=== PATIENT | male | born 1960 | race Caucasian/White ===

== ENCOUNTER 2023-11-06 19:21 | Inpatient (IN) | payer OTHER, SELFPAY ==
--- NOTE | 2023-11-06 20:40 | PCM.HP.STD ---
HPI - General General Date of Admission: 11/06/23 Date of Service: 11/06/23 Chief Complaint: Fatigue, weakness, dyspnea, black stools, body aches. HPI Narrative The patient is a 62 y/o M w/ PMHx: HLD hesitant to initiate statin therapy per outside records, Hx Hodgkin's lymphoma of lymph nodes of the neck treated with cobalt radiation in 1975 considered in remission currently, chart reported prior elevated BP without HTN history, Obesity, Hx Thyroid CA s/p surgical resection now resulting Hypothyroidism, Diabetes mellitus type II who presents to the [facility] on 11/06/23 as a direct admission from [facility] following evaluation at their facility secondary to significant general body aches and fatigue with any activity with recent aggressive full dose aspirin self administration because of this with dark black appearing melanotic stools prompting ED evaluation. Patient notes that he often is active and hikes as well as mows lawns for enjoyment but recently has felt exhausted during attempts. Primarily notes it started over the weekend. He was taking ASA for BL knee joint pain but last intake was the prior. He notes his stools last week were normal appearance. In the outside facility workup included vital signs BP 137/73 heart rate 110, respiratory rate 16, temperature 36 ?C, 100% oxygenation on room air, CBC with WBC 16.2, hemoglobin 8.9, platelet 271 without marked shift reported, coags not marked appearing, no previous CBC for comparison, BMP unremarkable aside mildly elevated BUN 20, creatinine 1.0. Patient with no previous labs for comparison. In the ED at outside facility stool was noted to be grossly melanotic and tested positive with occult positive stool. Patient was administered 1 L normal saline and administered IV Protonix. Case was discussed with gastroenterology Dr. Puga who recommended admission to [facility], CT scan abdomen and pelvis which was obtained and noted multiple well-circumscribed hepatic lesions likely cysts which patients notes are chronic and stable otherwise no acute findings. Per Dr. Puga patient was recommended upon arrival at [facility] to be administered 1 unit PRBC and placed on a Protonix drip with planned endoscopy. [facility] Medical History (Updated 11/06/23 @ 21:[address] Miriam Mayberry MD) Obesity HLD (hyperlipidemia) History of Hodgkin's lymphoma History of thyroid cancer Diabetes mellitus, type 2 Hypothyroidism Home Medications ?Medication ?Instructions ?Recorded ?Last Taken ?Type metformin 500 mg tablet 500 mg PO DAILY diabetic 05/25/21 Unknown History insulin degludec 100 unit/mL (3 12 unit subcut QHS Blood sugar 11/06/23 Unknown History mL) subcutaneous pen (Tresiba FlexTouch U-100 insulin) levothyroxine 150 mcg tablet 150 mcg PO DAILY Thyroid 11/06/23 Unknown History (Synthroid) sitagliptin phosphate 100 mg 100 mg PO DAILY Diabetic 11/06/23 Unknown History tablet (Januvia) Allergy/AdvReac Type Severity Reaction Status Date / Time No Known Allergies Allergy Unverified 05/25/21 15:47 Family History Father Diabetes Hypertension Grandmother Diabetes Maternal and paternal grandmothers. Uncle Diabetes Paternal uncle x 2. CAD (coronary artery disease) Maternal uncle. Brother Anxiety and depression Mother Alzheimer disease Surgical History (Updated 11/06/23 @ 21:[address] Miriam Mayberry MD) History of arthroscopy of both knees S/P cholecystectomy S/P total thyroidectomy S/P appendectomy S/P laparoscopic splenectomy Social History household members: spouse Smoking Status: Never smoker alcohol intake: current alcohol intake frequency: a few times a week substance use type: does not use ROS ROS Narrative Admission Review of Systems: CONSTITUTIONAL: No weight loss, fever, chills, + weakness or fatigue. HEENT: Eyes: No visual loss, blurred vision, double vision or yellow sclerae. Ears, Nose, Throat: No hearing loss, sneezing, congestion, runny nose or sore throat. SKIN: No rash or itching, lesions, wounds. CARDIOVASCULAR: No chest pain, chest pressure or chest discomfort, palpitations, edema, orthopnea, syncopal events. RESPIRATORY: + Dyspnea, primarily with exertion. No cough or sputum, wheezing, hemoptysis. GASTROINTESTINAL: + Increased flatus, belching, black melanotic stools. No anorexia, nausea, vomiting, diarrhea, abdominal pain, BRBPR. GENITOURINARY: No dysuria, frequency, urgency or retention. NEUROLOGICAL: No headache, dizziness, syncope, paralysis, ataxia, numbness or tingling in the extremities, focal weakness, change in bowel or bladder control, seizure. MUSCULOSKELETAL: + muscle, back pain, joint pain or stiffness. HEMATOLOGIC: + Anemia, melanotic stools as noted with active GI bleed. LYMPHATICS: No enlarged nodes. No history of splenectomy. PSYCHIATRIC: No history of depression or anxiety. ENDOCRINOLOGIC: No reports of sweating, cold or heat intolerance. No polyuria or polydipsia. ALLERGIES: No history of asthma, hives, eczema or rhinitis. Physical Exam Narrative Physical Examination: General: Awake, alert, oriented x 3 and cooperative, seated upright in MS bed in no apparent distress. Skin: Mildly pale color, normal turgor, no icterus, no cyanosis. HEENT: AT/NC, EOMI, PERRLA, MMM, no carotid bruits or JVD noted; however thickened neck makes evaluation difficult. Lungs: CTA bilaterally, moderate effort, mild decrease BL bases, no rales, ronchi or wheezing. Heart: Regular rate and rhythm; no gallop, rub audible. Abdomen: Soft, obese, NTTP, midline old abdominal incision, ND, hyperactive BS, no appreciated HSM. Extremities: No cyanosis, clubbing, or edema. Neurological: Patient awake, alert, oriented as noted, cognitive function intact; pupils equally reactive to light and accommodation, cranial nerves II-XII grossly normal, moving all 4 extremities, no focal deficits, strength moderately globally decreased secondary to acute presentation. Psychiatric: Affect appears fatigued otherwise normal, no acute evidence of depressive or anxiety feelings. Results Lab / Micro Data 11/06/23 20:45 Assessment & Plan Assessment/Plan (1) GI bleed: PLAN: Plan The patient is a 62 y/o M w/ PMHx: HLD hesitant to initiate statin therapy per outside records, Hx Hodgkin's lymphoma of lymph nodes of the neck treated with cobalt radiation in 1975 considered in remission currently, chart reported prior elevated BP without HTN history, Obesity, Hx Thyroid CA s/p surgical resection now resulting Hypothyroidism, Diabetes mellitus type II who presents to the [facility] on 11/06/23 as a direct admission from [facility] following evaluation at their facility secondary to significant general body aches and fatigue with any activity with recent aggressive full dose aspirin self administration because of this with dark black appearing melanotic stools prompting ED evaluation. #1. Acute GI Bleed w/ resultant Acute Blood Loss Anemia potentially on chronic anemia but unclear as no comparison previously: Patient with grossly melanotic stool, positive stool guaiac, outside facility hemoglobin 8.9 without comparison. Will admit to [facility] given stable vital signs, maintain on IVFs, continue with plan 1 unit PRBC administration per GI request, continue serial H&H assessments, will initiate and maintain on IV Protonix drip, gastroenterology consulted and will plan n.p.o. status after midnight with clears liquids prior to this for planned endoscopy. #2. Diabetes mellitus type II: Hold oral home regimen, will continue long-acting insulin but hold short acting insulin, given presentation as noted #1 will maintain on clear liquids until midnight then n.p.o. status following, maintain on every 6 hours accu checks w/ ISS given clears then n.p.o. status with transition once diet progressed. From [facility] records reviewed patient's most recent hemoglobin A1c 7.2% following with endocrinology started on Mounjaro 2.5 mg weekly with plan follow-up again in [address] Tito Bowman. #3. History of thyroid cancer status post total thyroidectomy now with resulting hypothyroidism: We will continue patient home Synthroid regimen. Patient status post total thyroidectomy [address] Urbina with noted 4 cm adenoma, controversial if cancer, treated with iodine 12/1999 with post scan demonstrating small uptake in the thyroid bed, Thyrogen stimulated WBS in 03/2001 negative, undetectable thyroglobulin, no antibodies since with also noted unremarkable neck ultrasounds. #4. History of Hodgkin's lymphoma of lymph nodes of the neck: Noted to been treated with cobalt radiation in 1975, s/p resectoin concurrently neck lymph node, spleen and at the same time patient also underwent cholecystectomy and appendectomy per his report. Currently considered in remission, encourage continued follow-up outpatient as previously arranged. #5. Chart reported history of elevated BP without hypertensive diagnosis: From records several noted point elevations of blood pressure and outpatient records, encourage continued close follow-up especially given history as may be appropriate for initiation of hypertensive regimen, as needed IV hydralazine in the interim. #6. Hyperlipidemia: Noted in an outpatient chart records but has been hesitant to initiate statin therapy, encourage continued outpatient follow-up. #7. Obesity: Weight loss and lifestyle changes encouraged. #8. DVT prophylaxis: SCDs. #9. CODE status: Patient HCPOA and LW are not in place but would be his decision maker if needed. Discussed CODE status at length including difference between FULL code, DNR-CCA and DNR-CC status. Following discussions about the differences in these status, requested Full Code status. Advanced Care Planning Face to Face Time: 16 minutes. Charges/Coding Visit Charges Inpatient E&M: 62509 Init Hosp L3 Procedures Hospitalists Procedures: 48289 Advncd Care Plan 30 Min
[2023-11-06 20:44] VITALS: BMI 34.7
[2023-11-06 21:06] VITALS: BP 135/82; PULSE 95; RESP 18; TEMP 36.7; O2SAT 98
[2023-11-06] MEDS: 0.9% Normal Saline (1000mL) 1,000 ML 100 ML IV (21:14)
[2023-11-06 21:15] LABS: Magnesium 1.8 mg/dL (1.6-2.6)
[2023-11-06] MEDS: Pantoprazole Sodium 80 MG in 0.9% Normal Saline (100mL Bag) 80 ML 10 MG CONT INF (21:27)
[2023-11-06 21:49] LABS: Hematocrit 25.5 % (40-54); Hemoglobin 8.2 g/dL (13.0-16.5)
--- NOTE | 2023-11-06 23:40 | CON.PCM.GI_ITS ---
HPI Consult Data Date of Consult: 11/06/23 HPI Narrative Reason for Consultation: GI bleed HPI Narrative: GILBERTO RAYMUNDO, is a 62 y/o M w/ PMHx: HLD hesitant to initiate statin therapy per outside records, Hx Hodgkin's lymphoma of lymph nodes of the neck treated with cobalt radiation in 1975 considered in remission currently. He has a past medical history of Obesity, Hx Thyroid CA s/p surgical resection now resulting Hypothyroidism, Diabetes mellitus type II who presents to the [facility] on 11/06/23 as a direct admission from [facility] following evaluation at their facility secondary to significant general body aches and fatigue . He recently started on a full dose aspirin self administration because of this with dark black appearing melanotic stools prompting ED evaluation. Patient notes that he often is active and hikes as well as mows lawns for enjoyment but recently has felt exhausted during attempts. Primarily notes it started over the weekend. He was taking ASA for BL knee joint pain but last intake was the prior. He notes his stools last week were normal appearance. In the outside facility workup included vital signs BP 137/73 heart rate 110, respiratory rate 16, temperature 36 ?C, 100% oxygenation on room air, CBC with WBC 16.2, hemoglobin 8.9, platelet 271 without marked shift reported, coags not marked appearing, no previous CBC for comparison, BMP unremarkable aside mildly elevated BUN 20, creatinine 1.0. Patient with no previous labs for comparison. In the ED at outside facility stool was noted to be grossly melanotic and tested positive with occult positive stool. Patient was administered 1 L normal saline and administered IV Protonix. CT scan abdomen and pelvis which was obtained and noted multiple well-circumscribed hepatic lesions likely cysts which patients notes are chronic and stable otherwise no acute findings. [facility] Medical History (Updated 11/07/23 @ 11:[address] Cata Carson, DO) Obesity HLD (hyperlipidemia) History of Hodgkin's lymphoma History of thyroid cancer Diabetes mellitus, type 2 Hypothyroidism Home Medications ?Medication ?Instructions ?Recorded ?Last Taken ?Type metformin 500 mg tablet 500 mg PO DAILY diabetic 05/25/21 Unknown History insulin degludec 100 unit/mL (3 12 unit subcut QHS Blood sugar 11/06/23 Unknown History mL) subcutaneous pen (Tresiba FlexTouch U-100 insulin) levothyroxine 150 mcg tablet 150 mcg PO DAILY Thyroid 11/06/23 Unknown History (Synthroid) sitagliptin phosphate 100 mg 100 mg PO DAILY Diabetic 11/06/23 Unknown History tablet (Januvia) Allergy/AdvReac Type Severity Reaction Status Date / Time No Known Allergies Allergy Unverified 05/25/21 15:47 Family History Father Diabetes Hypertension Grandmother Diabetes Maternal and paternal grandmothers. Uncle Diabetes Paternal uncle x 2. CAD (coronary artery disease) Maternal uncle. Brother Anxiety and depression Mother Alzheimer disease Surgical History (Updated 11/06/23 @ 21:[address] Miriam Mayberry MD) History of arthroscopy of both knees S/P cholecystectomy S/P total thyroidectomy S/P appendectomy S/P laparoscopic splenectomy Social History household members: spouse Smoking Status: Never smoker alcohol intake: current alcohol intake frequency: a few times a week substance use type: does not use ROS ROS Narrative Admission Review of Systems: CONSTITUTIONAL: No weight loss, fever, chills, + weakness or fatigue. HEENT: Eyes: No visual loss, blurred vision, double vision or yellow sclerae. Ears, Nose, Throat: No hearing loss, sneezing, congestion, runny nose or sore throat. SKIN: No rash or itching, lesions, wounds. CARDIOVASCULAR: No chest pain, chest pressure or chest discomfort, palpitations, edema, orthopnea, syncopal events. RESPIRATORY: + Dyspnea, primarily with exertion. No cough or sputum, wheezing, hemoptysis. GASTROINTESTINAL: + Increased flatus, belching, black melanotic stools. No anorexia, nausea, vomiting, diarrhea, abdominal pain, BRBPR. GENITOURINARY: No dysuria, frequency, urgency or retention. NEUROLOGICAL: No headache, dizziness, syncope, paralysis, ataxia, numbness or tingling in the extremities, focal weakness, change in bowel or bladder control, seizure. MUSCULOSKELETAL: + muscle, back pain, joint pain or stiffness. HEMATOLOGIC: + Anemia, melanotic stools as noted with active GI bleed. LYMPHATICS: No enlarged nodes. No history of splenectomy. PSYCHIATRIC: No history of depression or anxiety. ENDOCRINOLOGIC: No reports of sweating, cold or heat intolerance. No polyuria or polydipsia. ALLERGIES: No history of asthma, hives, eczema or rhinitis. Physical Exam Const alert, oriented x3, no apparent distress, healthy appearing and well nourished; Negative for average body habitus Constitutional Narrative: Obese, upper middle-aged, white male, sitting up in bed, at bedside, appears comfortable and nontoxic at this time HEENT head/scalp atraumatic and moist oral mucous membranes HEENT Narrative: Mallampati 3, no thrush Head and Scalp: normocephalic Resp normal respiratory effort, no retractions, no use of accessory muscles and clear to auscultation bilaterally Auscultation: Negative for rales, rhonchi or wheezes Cardio regular rate, regular rhythm, S1 normal heart sound, S2 normal heart sound, no murmurs, no rub, no gallops and no clicks GI normal to inspection, nondistended, normoactive bowel sounds, soft to palpation and non-tender Extremity no clubbing, cyanosis or edema Neuro oriented x3, moves all extremities and no focal motor deficits Speech: speech normal Psych affect normal Psych Narrative: Very pleasant, interacts appropriately Lab / Micro Data 11/07/23 06:00 11/07/23 06:00 Labs: Laboratory Results - last 24 hr 11/06/23 20:45: Hgb 8.2 L, Hct 25.5 L, Magnesium 1.8, Antibody Screen NEGATIVE, Crossmatch See Detail 11/06/23 23:36: POC Glucose 153 H 11/07/23 03:32: Hgb 8.3 L, Hct 25.2 L 11/07/23 06:00: WBC 17.1 H, RBC 2.91 L, Hgb 8.5 L, Hct 26.1 L, MCV 89.7, MCH 29.2, MCHC 32.6, RDW Std Deviation 44.4 H, RDW Coeff of Saulo 13.9, Plt Count 249, MPV 10.3, Immature Gran % (Auto) 1.400 H, Neut % (Auto) 64.3, Lymph % (Auto) 25.8, Terry % (Auto) 7.1, Eos % (Auto) 0.8, Baso % (Auto) 0.6, Absolute Neuts (auto) 11.0 H, Absolute Lymphs (auto) 4.42, Nucleated RBC % 0.5, PT 13.9, INR 1.1, APTT 24.2, Sodium 138, Potassium 3.9, Chloride 108 H, Carbon Dioxide 22.0, Anion Gap 8, BUN 16, Creatinine 1.11, Estim Creat Clear Calc 95.72, Est GFR (MDRD) Af Amer 87, Est GFR (MDRD) Non-Af 72, BUN/Creatinine Ratio 14.4, Glucose 156 H, Hemoglobin A1c 6.4 H, Calcium 8.0 L, Total Bilirubin 0.70, AST 24, ALT 31, Alkaline Phosphatase 42 L, Total Protein 5.9 L, Albumin 3.0 L, Globulin 2.9, Albumin/Globulin Ratio 1.0, TSH 3.97 H 11/07/23 06:22: POC Glucose 156 H 11/07/23 11:14: POC Glucose 128 H Assessment & Plan Assessment/Plan (1) GI bleed: PLAN: Plan The patient is a 62 y/o M w/ PMHx: Hodgkin's lymphoma of lymph nodes of the neck treated with cobalt radiation in 1975 considered in remission currently, chart reported prior elevated BP without HTN history, Obesity, Hx Thyroid CA s/p surgical resection now resulting Hypothyroidism, Diabetes mellitus type II who presents to the [facility] on 11/06/23 as a direct admission from [facility] following evaluation at their facility secondary to significant general body aches and fatigue with any activity with recent aggressive full dose aspirin self administration because of this with dark black appearing melanotic stools prompting ED evaluation. Acute GI Bleed w/ resultant Acute Blood Loss Anemia potentially on chronic anemia but unclear as no comparison previously: Patient with grossly melanotic stool, positive stool guaiac, outside facility hemoglobin 8.9 without comparison. Will admit to [facility] given stable vital signs, maintain on IVFs, continue with plan 1 unit PRBC administration \t, continue serial H&H assessments, will initiate and maintain on IV Protonix drip, gastroenterology consulted and will plan n.p.o. status after midnight with clears liquids prior to this for planned endoscopy. Charges/Coding Visit Charges Inpatient E&M: 74255 Init Hosp L3
[2023-11-06 23:46] VITALS: BP 112/61; PULSE 93; RESP 16; TEMP 36.7; O2SAT 99
[2023-11-07] VITALS (14 sets, daily range): BP systolic 97–139; BP diastolic 57–79; PULSE 83–98; RESP 16; TEMP 36.3–37.5; O2SAT 97–100; BMI 34.7
[2023-11-07 00:26] LABS: Bedside Glucose 153 mg/dL (74-106)
[2023-11-07 03:40] LABS: Hematocrit 25.2 % (40-54); Hemoglobin 8.3 g/dL (13.0-16.5)
--- NOTE | 2023-11-07 05:00 | EKG12_ITS ---
Test Reason : PRE OP Blood Pressure : / mmHG Vent. Rate : 096 BPM Atrial Rate : 096 BPM P-R Int : 148 ms QRS Dur : 090 ms QT Int : 372 ms P-R-T Axes : 044 010 065 degrees QTc Int : 469 ms Normal sinus rhythm Possible Lateral infarct , age undetermined Cannot rule out Inferior wall AK Abnormal ECG No previous ECGs available Confirmed by Milan Mills ([id number]), sound editor TREE EVANS ([id number]) on 11/11/2023 1:30:22 PM Referred By: Confirmed By:Milan Mills
[2023-11-07] MEDS: Pantoprazole Sodium 80 MG in 0.9% Normal Saline (100mL Bag) 80 ML 10 MG CONT INF ×2 (06:17→18:04)
[2023-11-07 06:23] LABS: Absolute Lymphocyte Count 4.42 X10^3/uL (0.83-4.51); Basophil% 0.6 % (0-1); Eosinophil# 0.13 X10^3/uL; Eosinophils% 0.8 % (0-5); Hematocrit 26.1 % (40-54); Hemoglobin 8.5 g/dL (13.0-16.5); Lymphocyte # 4.42 X10^3/ul (0.83-4.51); Lymphocyte % 25.8 % (19-41); Mean Corp Hgb Conc 32.6 g/dL (32-36); Mean Corpuscular Hgb 29.2 pg (27.0-32.0); Mean Corpuscular Volume 89.7 fL (80-94); Mean Platelet Vol. 10.3 fl (6.2-12.0); Monocyte# 1.21 X10^3/uL; Monocyte% 7.1 % (0-10); NRBC Flagged by Analyzer 0.5 % (0-5); Neutrophil % 64.3 % (47-70); Platelet Count 249 K/mm3 (150-450); RBC Distribution Width CV 13.9 % (11.6-14.6); RBC Distribution Width SD 44.4 fl (35.1-43.9); Red Blood Count 2.91 M/mm3 (4.6-6.2); White Blood Count 17.1 K/mm3 (4.4-11.0)
[2023-11-07] MEDS: Levothyroxine 150 MCG Tablet PO (06:23)
[2023-11-07] MEDS: 0.9% Normal Saline (1000mL) 1,000 ML 100 ML IV (06:28)
[2023-11-07 06:29] LABS: International Normalized Ratio 1.1; Prothrombin Time (Protime)PT. 13.9 SECONDS (11.7-14.9)
[2023-11-07 06:31] LABS: Partial Thromboplast Time 24.2 Seconds (24.1-36.2)
[2023-11-07 06:56] LABS: AST(SGOT) 24 U/L (15-37); Alanine Aminotransfer ALT/SGPT 31 U/L (16-61); Alkaline Phosphatase 42 U/L (45-117); Anion Gap 8 (5-15); BUN 16 mg/dL (7-18); BUN/Creat Ratio 14.4 RATIO (10-20); Chloride 108 mmol/L (98-107); Creatinine, Serum 1.11 mg/dL (0.70-1.30); EST Glomerular Filtration Rate 72 mL/min (>60); Est Glom Filt Rate - Afr Amer 87 mL/min (>60); Estimated Creatinine Clearance 95.72 ml/min; Globulin 2.9 g/dL (2.2-4.2); Glucose 156 mg/dL (74-106); Potassium 3.9 mmol/L (3.5-5.1); Protein, Total 5.9 g/dL (6.4-8.2); Sodium Level 138 mmol/L (136-145); Thyroid Stim Hormone (TSH) 3.97 uIU/mL (0.358-3.74)
[2023-11-07 07:00] LABS: Bedside Glucose 156 mg/dL (74-106)
[2023-11-07 07:48] LABS: Hemoglobin A1c 6.4 % (3.8-5.6)
--- NOTE | 2023-11-07 08:00 | PCM.PN.HOSP ---
Reason for Visit Reason for Visit: Generalized weakness/fatigue/dark black tarry stools Subjective Subjective Mr. Bishop is a 62-year-old white male who presented to the emergency department at [facility] emergency department on 11/06/2023 with fatigue and aching. Patient reported he had been taking aspirin via self administration and was complaining of melanotic appearing stools. He states at baseline he is very active but recently he felt exhausted during his attempts to perform his recreational activities. Symptoms started over the weekend and he been taking aspirin for bilateral lower extremity knee pain since . Vital signs on presentation at [facility] showed a temperature of 36 ?C, blood pressure 137/73, heart rate 110, respiratory 16 oxygen saturations were 100% on room air. CBC showed a mild leukocytosis with white count of 16.2, hemoglobin of 8.9 and normal platelet count. Baseline hemoglobin is unknown. He did have a bowel movement at the outside facility and was noted to have grossly melanotic stool that tested positive for occult blood. He was given 1 L of IV saline and IV Protonix and the case was discussed with gastroenterology in [place]-Dr. Puga-who recommended admission to [facility]. A CT of the abdomen pelvis was performed and showed multiple well-circumscribed hepatic lesions that are consistent with cyst and the patient noted those are chronic. He was given 1 unit of packed red blood cells and placed on Protonix drip on arrival. Plan is for endoscopy today. Patient reports no further bowel movement since he has been here. Does have a little bit of epigastric discomfort but nothing significant. Has no complaints at this time. Objective Data Objective Data Vital Signs: Vital Signs Temp Pulse Resp BP Pulse Ox O2 Del Method 98.8 F 95 16 126/77 H 99 Room Air 11/07/23 06:32 11/07/23 06:32 11/07/23 06:32 11/07/23 06:32 11/07/23 06:32 11/07/23 06:32 Oxygen Delivery Method Room Air Weight: 119.2 kg Body Mass Index (BMI) 34.7 Intake & Output: Intake and Output for Last 24 Hours 11/05/23 11/06/23 11/07/23 23:59 23:59 23:59 Intake Total 200 / 200 1009.33 / 1009.33 Balance 200 / 200 1009.33 / 1009.33 Lab / Micro Data 11/07/23 06:00 11/07/23 06:00 Labs: Laboratory Results - last 24 hr 11/06/23 20:45: Hgb 8.2 L, Hct 25.5 L, Magnesium 1.8, Antibody Screen NEGATIVE, Crossmatch See Detail 11/06/23 23:36: POC Glucose 153 H 11/07/23 03:32: Hgb 8.3 L, Hct 25.2 L 11/07/23 06:00: WBC 17.1 H, RBC 2.91 L, Hgb 8.5 L, Hct 26.1 L, MCV 89.7, MCH 29.2, MCHC 32.6, RDW Std Deviation 44.4 H, RDW Coeff of Saulo 13.9, Plt Count 249, MPV 10.3, Immature Gran % (Auto) 1.400 H, Neut % (Auto) 64.3, Lymph % (Auto) 25.8, Aiken % (Auto) 7.1, Eos % (Auto) 0.8, Baso % (Auto) 0.6, Absolute Neuts (auto) 11.0 H, Absolute Lymphs (auto) 4.42, Nucleated RBC % 0.5, PT 13.9, INR 1.1, APTT 24.2, Sodium 138, Potassium 3.9, Chloride 108 H, Carbon Dioxide 22.0, Anion Gap 8, BUN 16, Creatinine 1.11, Estim Creat Clear Calc 95.72, Est GFR (MDRD) Af Amer 87, Est GFR (MDRD) Non-Af 72, BUN/Creatinine Ratio 14.4, Glucose 156 H, Hemoglobin A1c 6.4 H, Calcium 8.0 L, Total Bilirubin 0.70, AST 24, ALT 31, Alkaline Phosphatase 42 L, Total Protein 5.9 L, Albumin 3.0 L, Globulin 2.9, Albumin/Globulin Ratio 1.0, TSH 3.97 H 11/07/23 06:22: POC Glucose 156 H Physical Exam Const alert, oriented x3, no apparent distress, healthy appearing and well nourished; Negative for average body habitus Constitutional Narrative: Obese, upper middle-aged, white male, sitting up in bed, at bedside, appears comfortable and nontoxic at this time HEENT head/scalp atraumatic and moist oral mucous membranes HEENT Narrative: Mallampati 3, no thrush Head and Scalp: normocephalic Resp normal respiratory effort, no retractions, no use of accessory muscles and clear to auscultation bilaterally Auscultation: Negative for rales, rhonchi or wheezes Cardio regular rate, regular rhythm, S1 normal heart sound, S2 normal heart sound, no murmurs, no rub, no gallops and no clicks GI normal to inspection, nondistended, normoactive bowel sounds, soft to palpation and non-tender Extremity no clubbing, cyanosis or edema Neuro oriented x3, moves all extremities and no focal motor deficits Speech: speech normal Psych affect normal Psych Narrative: Very pleasant, interacts appropriately Assessment & Plan Assessment/Plan (1) GI bleed: (2) Acute blood loss anemia: (3) Leukocytosis: PLAN: Plan GI bleed -Patient has been on aspirin pretty continuously at higher doses since -Continue Protonix drip -N.p.o. for EGD today -Continue IV fluids -continue serial H&H -GI is consulted and plan is for endoscopy today Suspected acute blood loss anemia -Baseline hemoglobin is unclear and was 8.9 on presentation to outside facility -Patient was symptomatic so was given 1 unit of packed red blood cells on admission -Hemoglobin continues to be in the 8-8.5 range with most recently being 8.5 -Treatment as above -Repeat transfusion for precipitous bleeding or hemoglobin drop under 7 Leukocytosis -Etiology is unclear -No left shift present -May be reactive -Continue to monitor Hypothyroidism -History of thyroid cancer status post thyroidectomy -Continue home Synthroid -TSH is very slightly elevated at 3.97-defer any further workup at this time History of Hodgkin's lymphoma -Was treated with radiation in 1975 and resection concurrently -Considered in remission -Continued outpatient follow-up Hyperlipidemia -Patient not on any statin per his request -Continue outpatient follow-up DM-2 -Hold home metformin and Tresiba -N.p.o. -SSI every 6 hours -Most recent hemoglobin A1c was 7.2 and 6.4 today however he is anemic and had transfusion so this is inaccurate -Accu-Cheks as ordered Obesity -BMI is 34.7 -Recommend weight loss -complicates treatment, prognosis, outcomes CODE STATUS -Full code Charges/Coding Visit Charges Inpatient E&M: 66846 Subs Hosp L2
--- NOTE | 2023-11-07 11:25 | CASEMGMT ---
STEPHANIE ROY Assessment: Face to Face with pt for initial transition planning/care coordination assessment. RN CM introduced self and role at [facility], pt voices understanding and consents to assessment. Pt lying in bed in no distress, pt at bedside. Pt is A&O x4 and answers all questions appropriately at this time. Care providers, pharmacy, and demographics verified/updated. Admitting Dx: ABLA, GI Bleed PCP: Lew Specialists: Monique Bowman Preferred Pharmacy: [facility] Insurance: Medical [employer] Prescription Benefit: yes LNOK: Sandra - Living Arrangements: Pt lives with and step-son in a 1 story home with 3 steps and handrails to enter. Pt states I with ADLs and IADLs. Transportation: Pt drives self and denies concerns with transportation. DME:Denies HHC/SNF: Denies Hx of. Pt states no concerns with going home at time of dc. Pt states no further concerns/needs. CM to follow. Advised pt to ask CM if any further question/concerns/needs arise, voices understanding. Pt Goal: Home Plan: Home no needs Malou BROWN CM
[2023-11-07 11:39] LABS: Bedside Glucose 128 mg/dL (74-106)
--- NOTE | 2023-11-07 14:14 | OP.EGD_ITS ---
Patient Name: Reg Bishop Procedure Date: 11/07/2023 1:36 PM Date of : 1960 Age: 62 Procedure: Upper GI endoscopy Indications: Melena Providers: Rafael Puga DO Medicines: Monitored Anesthesia Care Patient Profile: This is a 62 year old male. Refer to note in patient chart for documentation of history and physical. Patient has symptoms of acute dyspepsia. Complications: No immediate complications. Procedure: Pre-Anesthesia Assessment: - Prior to the procedure, a History and Physical was performed, and patient medications and allergies were reviewed. The patient is competent. The risks and benefits of the procedure and the sedation options and risks were discussed with the patient. All questions were answered and informed consent was obtained. Patient identification and proposed procedure were verified by the physician in the pre-procedure area. Mental Status Examination: alert and oriented. Airway Examination: normal oropharyngeal airway and neck mobility. Respiratory Examination: clear to auscultation. CV Examination: normal. Prophylactic Antibiotics: The patient does not require prophylactic antibiotics. Prior Anticoagulants: The patient has taken no anticoagulant or antiplatelet agents. ASA Grade Assessment: III - A patient with severe systemic disease. After reviewing the risks and benefits, the patient was deemed in satisfactory condition to undergo the procedure. The anesthesia plan was to use monitored anesthesia care (MAC). Immediately prior to administration of medications, the patient was re-assessed for adequacy to receive sedatives. The heart rate, respiratory rate, oxygen saturations, blood pressure, adequacy of pulmonary ventilation, and response to care were monitored throughout the procedure. The physical status of the patient was re-assessed after the procedure. After obtaining informed consent, the endoscope was passed under direct vision. Throughout the procedure, the patient's blood pressure, pulse, and oxygen saturations were monitored continuously. The Endoscope was introduced through the mouth, and advanced to the second part of duodenum. The upper GI endoscopy was accomplished without difficulty. The patient tolerated the procedure well. Scope In: 1:49:16 PM Scope Out: 1:50:10 PM Total Procedure Duration Time 0 hours 0 minutes 54 seconds Findings: The examined esophagus was normal. The entire examined stomach was normal. The second portion of the duodenum was normal. Impression: - Normal esophagus. - Normal stomach. - Normal second portion of the duodenum. - No specimens collected. Recommendation: - Discharge patient to home. - Resume previous diet. - Continue present medications. Procedure Code(s): --- Professional --- 79343, Esophagogastroduodenoscopy, flexible, transoral; diagnostic, including collection of specimen(s) by brushing or washing, when performed (separate procedure) CPT copyright 2021 [employer]. All rights reserved. The codes documented in this report are preliminary and upon medical records coder review may be revised to meet current compliance requirements. Rafael Puga DO 11/07/2023 2:14:02 PM This report has been signed electronically. Number of Addenda: 0 Note Initiated On: 11/07/2023 1:36 PM
--- NOTE | 2023-11-07 16:17 | CASEMGMT ---
Social Work SW met with pt and to discuss advance directives. Pt states he has not completed living will or health care POA and is not interested in additional information at this time. VIDYA Choudhary
[2023-11-07 16:38] LABS: Bedside Glucose 163 mg/dL (74-106)
[2023-11-07] MEDS: Bisacodyl 5 MG Tablet 20 MG PO (18:05)
[2023-11-07] MEDS: Polyethylene Glycol 3350 BOWEL PREP 1 BOTTLE PO (18:18)
[2023-11-07 23:27] LABS: Bedside Glucose 151 mg/dL (74-106)
[2023-11-08] VITALS (11 sets, daily range): BP systolic 90–140; BP diastolic 39–87; PULSE 74–97; RESP 16–18; TEMP 36.6–37; O2SAT 97–100; BMI 35.0; BMI 35.2
[2023-11-08] MEDS: Pantoprazole Sodium 80 MG in 0.9% Normal Saline (100mL Bag) 80 ML 10 MG CONT INF (03:26)
[2023-11-08 06:10] LABS: Hematocrit 25.3 % (40-54); Hemoglobin 8.1 g/dL (13.0-16.5); Mean Corpuscular Volume 90.7 fL (80-94); Mean Platelet Vol. 10.3 fl (6.2-12.0); Platelet Count 274 K/mm3 (150-450); RBC Distribution Width CV 14.4 % (11.6-14.6); RBC Distribution Width SD 45.3 fl (35.1-43.9); Red Blood Count 2.79 M/mm3 (4.6-6.2); White Blood Count 13.1 K/mm3 (4.4-11.0)
[2023-11-08] MEDS: Insulin Lispro 100 UNIT/ML INSULN.PEN SC (06:13)
[2023-11-08] MEDS: Levothyroxine 150 MCG Tablet PO (06:13)
[2023-11-08 06:32] LABS: Bedside Glucose 169 mg/dL (74-106)
[2023-11-08 07:00] LABS: Anion Gap 4 (5-15); BUN 12 mg/dL (7-18); BUN/Creat Ratio 11.4 RATIO (10-20); Chloride 109 mmol/L (98-107); Creatinine, Serum 1.05 mg/dL (0.70-1.30); EST Glomerular Filtration Rate 76 mL/min (>60); Est Glom Filt Rate - Afr Amer 92 mL/min (>60); Estimated Creatinine Clearance 101.74 ml/min; Glucose 178 mg/dL (74-106); Potassium 3.9 mmol/L (3.5-5.1); Sodium Level 139 mmol/L (136-145)
[2023-11-08 10:35] LABS: Bedside Glucose 169 mg/dL (74-106)
[2023-11-08] MEDS: Lactated Ringers 1,000 ML 15 ML IV (10:37)
--- NOTE | 2023-11-08 11:30 | COLBX_PTH ---
PATIENT: GILBERTO RAYMUNDO LOC: MS3 U#:[id number] AGE/SX: 62/M [place] [facility] [place]: Dr. Cata Carson DO : 1960 BED: 1 DIS: 11/08/2023 SPEC #: [id number] RECD: 11/08/23 14:28 STATUS: YEN PHILLIPS #: [id number] BILL: 11/08/23 11:[address]: Rafael Puga DEPT: SURGICAL PATHOLOGY RECD BY: Sarah Szymanski ENTERED: 11/11/23 08:00 SP TYPE: COLON BX MELISSA DR: MD Dr. Cata Barcenas DO JARED HOSTETLER, [employer] OPERATOR-C Tissues: A - Rectum, NOS B - Sigmoid colon biopsy Procedures: Surgery Specimen Level IV HEADER OPERATION: Colonoscopy, polypectomy PRE-OP DIAGNOSIS: ABLA, GI bleed TISSUE SUBMITTED: A- Rectal polyp, B- Sigmoid colon biopsy MICROSCOPIC DIAGNOSIS A. Rectal polyp, polypectomy: Fragments of tubular adenoma. B. Sigmoid colon polyp, biopsy: Consistent with benign mucosal polyp. / 11/12/2023 MICROSCOPIC DESCRIPTION Slides are reviewed. GROSS DESCRIPTION A. Received in fixative is one container labeled with the patient's name and designated Rectal polyp. The specimen consists of multiple irregular fragments of light gibbons soft tissue that in aggregate measure 1.0 x 1.0 x 0.3 cm. The specimen is totally submitted in one cassette. B. Received in fixative is one container labeled with the patient's name and designated Sigmoid colon polyp. The specimen consists of a gibbons-pink polyp measuring 0.6 x 0.5 x 0.3cm. The entire specimen is submitted in one cassette. / 11/11/2023 TC:1 CPT:71995z5
--- NOTE | 2023-11-08 12:19 | OP.COLON_ITS ---
Patient Name: Reg Bishop Procedure Date: 11/08/2023 11:04 AM Date of : 1960 Age: 62 Procedure: Colonoscopy Indications: Hematochezia Providers: Rafael Puga DO Medicines: Monitored Anesthesia Care Patient Profile: This is a 62 year old male. Refer to note in patient chart for documentation of history and physical. Last Colonoscopy: date unknown. Unable to locate last colonoscopy report. Complications: No immediate complications. Procedure: Pre-Anesthesia Assessment: - Prior to the procedure, a History and Physical was performed, and patient medications and allergies were reviewed. The patient is competent. The risks and benefits of the procedure and the sedation options and risks were discussed with the patient. All questions were answered and informed consent was obtained. Patient identification and proposed procedure were verified by the physician in the pre-procedure area. Mental Status Examination: alert and oriented. Airway Examination: normal oropharyngeal airway and neck mobility. Respiratory Examination: clear to auscultation. Prophylactic Antibiotics: The patient does not require prophylactic antibiotics. Prior Anticoagulants: The patient has taken no anticoagulant or antiplatelet agents. After reviewing the risks and benefits, the patient was deemed in satisfactory condition to undergo the procedure. The anesthesia plan was to use monitored anesthesia care (MAC). Immediately prior to administration of medications, the patient was re-assessed for adequacy to receive sedatives. The heart rate, respiratory rate, oxygen saturations, blood pressure, adequacy of pulmonary ventilation, and response to care were monitored throughout the procedure. The physical status of the patient was re-assessed after the procedure. After I obtained informed consent, the scope was passed under direct vision. Throughout the procedure, the patient's blood pressure, pulse, and oxygen saturations were monitored continuously. The Colonoscope was introduced through the anus and advanced to the terminal ileum. The colonoscopy was performed without difficulty. The patient tolerated the procedure well. The quality of the bowel preparation was fair. Scope In: 11:51:28 AM Scope Withdrawal Time 0 hours 16 minutes 17 seconds Scope Out: 12:09:50 PM Total Procedure Duration Time 0 hours 18 minutes 22 seconds Findings: The perianal and digital rectal examinations were normal. Two sessile polyps were found in the rectum and sigmoid colon. The polyps were 1 to 2 mm in size. These polyps were removed with a hot snare. Resection and retrieval were complete. Verification of patient identification for the specimen was done. Estimated blood loss was minimal. Hematin (altered blood/qqrmop-btvryy-faqv material) was found in the entire colon. A few small-mouthed diverticula were found in the recto-sigmoid colon. The distal ileum and terminal ileum contained hematin (altered blood/eydgod-cxpodo-duur material). Impression: - Preparation of the colon was fair. - Two 1 to 2 mm polyps in the rectum and in the sigmoid colon, removed with a hot snare. Resected and retrieved. - Blood in the entire examined colon. - Diverticulosis in the recto-sigmoid colon. - Blood in the distal ileum and in the terminal ileum. Recommendation: - [facility]. - NPO today. - Continue present medications. - Await pathology results. - Repeat colonoscopy. Procedure Code(s): --- Professional --- 68323, Colonoscopy, flexible; with removal of tumor(s), polyp(s), or other lesion(s) by snare technique CPT copyright 2021 [employer]. All rights reserved. The codes documented in this report are preliminary and upon fire investigation manager review may be revised to meet current compliance requirements. Rafael Puga DO 11/08/2023 12:18:46 PM This report has been signed electronically. Number of Addenda: 0 Note Initiated On: 11/08/2023 11:04 AM
--- NOTE | 2023-11-08 12:19 | CT_ITS ---
STUDY: CTA ABDOMEN AND PELVIS WITH CONTRAST REASON FOR EXAM: Male, 62 years old. Small bowel GI bleeding seen on colonoscopy RADIATION DOSAGE (If Supplied By Facility): CTDIvol = ( 25.43 ) mGy, DLP = ( 1372.69 ) mGycm TECHNIQUE: Transaxial images were obtained from the dome of the diaphragm to the symphysis pubis without oral contrast. IV 100mL Isovue-370 was administered. Sagittal and coronal images were reconstructed. 3-D images were reconstructed. Individualized dose optimization techniques were used for this CT. COMPARISON: Comparison is made with prior outside CT scan of the abdomen and pelvis dated November 06, 2023. FINDINGS: The visualized lung bases are unremarkable. The visualized portions of the heart are within normal limits. There is decreased attenuation of the liver consistent with steatosis. Mild hepatomegaly. Multiple hypodensities are once again seen in both lobes of the liver most likely representing cysts. Low-level densities are seen within the gallbladder lumen suggestive of possible sludge. Surgical clips are seen in the splenic bed and possible prior partial splenectomy. Normal pancreas. Normal bilateral adrenal glands. Normal right kidney. Normal left kidney. Normal visualized stomach. Normal small intestine. There are multiple colonic diverticula consistent with diverticulosis. The appendix is visualized and appears normal. Normal abdominal aorta. Normal inferior vena cava. Normal retroperitoneum. Normal urinary bladder. The prostate measures 4.5 cm x 5.3 cm. Small benign-appearing bilateral inguinal lymph nodes. There are degenerative changes of the visualized lumbar spine. CT/CTA Abd/Pelvis W/WO Contrast IMPRESSION: Hepatomegaly and fatty infiltration of the liver. Findings suggesting multiple hepatic cysts. Sigmoid diverticulosis. Electronically Signed: Enrico Dao MD at 13:28 EDT ,
--- NOTE | 2023-11-08 12:19 | OP.CCLET_ITS ---
11/08/2023 Mauricio Portillo Re : Colonoscopy procedure for Reg Bishop Dear Lew This procedure was performed on Wednesday, November 08, 2023. My impressions and recommendations are as follows: Impressions : - Preparation of the colon was fair. - Two 1 to 2 mm polyps in the rectum and in the sigmoid colon, removed with a hot snare. Resected and retrieved. - Blood in the entire examined colon. - Diverticulosis in the recto-sigmoid colon. - Blood in the distal ileum and in the terminal ileum. Recommendations : - [facility] to [facility]. - NPO today. - Continue present medications. - Await pathology results. - Repeat colonoscopy. My findings are described in the full procedure note, which is enclosed. If I can be of further assistance, please feel free to contact me at . Sincerely, Rafael Puga, 11/08/2023 12:18:46 PM This report has been signed electronically.
--- NOTE | 2023-11-08 12:20 | EX.PCM.PN.GI ---
Subjective Subjective Patient just underwent colonoscopy. He had 1 polyp in the rectum did have bleeding stigmata and another polyp in the sigmoid that did not have bleeding stigmata. Both of those were removed. He had blood throughout the colon and in the terminal ileum. He is not having abdominal pain at this time. Objective Data Objective Data Vital Signs: Vital Signs Temp Pulse Resp BP Pulse Ox O2 Del Method 98.4 F 97 18 131/86 H 100 Room Air 11/08/23 09:55 11/08/23 09:55 11/08/23 09:55 11/08/23 09:55 11/08/23 09:55 11/08/23 09:55 Oxygen Delivery Method Room Air Weight: 265 lb 10.512 oz Body Mass Index (BMI) 35.2 Intake & Output: Intake and Output for Last 24 Hours 11/06/23 11/07/23 11/08/23 23:59 23:59 23:59 Intake Total 200 / 200 2251.00 / 2251.00 143.67 / 143.67 Balance 200 / 200 2251.00 / 2251.00 143.67 / 143.67 Lab / Micro Data 11/08/23 05:35 11/08/23 05:35 Labs: Laboratory Results - last 24 hr 11/06/23 20:45: Crossmatch See Detail 11/07/23 16:17: POC Glucose 163 H 11/07/23 23:02: POC Glucose 151 H 11/08/23 05:35: WBC 13.1 H, RBC 2.79 L, Hgb 8.1 L, Hct 25.3 L, MCV 90.7, MCH 29.0, MCHC 32.0, RDW Std Deviation 45.3 H, RDW Coeff of Saulo 14.4, Plt Count 274, MPV 10.3, Sodium 139, Potassium 3.9, Chloride 109 H, Carbon Dioxide 26.0, Anion Gap 4 L, BUN 12, Creatinine 1.05, Estim Creat Clear Calc 101.74, Est GFR (MDRD) Af Amer 92, Est GFR (MDRD) Non-Af 76, BUN/Creatinine Ratio 11.4, Glucose 178 H, Calcium 8.0 L 11/08/23 06:12: POC Glucose 169 H 11/08/23 10:13: POC Glucose 169 H Physical Exam Const alert, oriented x3, no apparent distress, healthy appearing and well nourished; Negative for average body habitus Constitutional Narrative: Obese, upper middle-aged, white male, sitting up in bed, at bedside, appears comfortable and nontoxic at this time HEENT head/scalp atraumatic and moist oral mucous membranes HEENT Narrative: Mallampati 3, no thrush Head and Scalp: normocephalic Resp normal respiratory effort, no retractions, no use of accessory muscles and clear to auscultation bilaterally Auscultation: Negative for rales, rhonchi or wheezes Cardio regular rate, regular rhythm, S1 normal heart sound, S2 normal heart sound, no murmurs, no rub, no gallops and no clicks GI normal to inspection, nondistended, normoactive bowel sounds, soft to palpation and non-tender Extremity no clubbing, cyanosis or edema Neuro oriented x3, moves all extremities and no focal motor deficits Speech: speech normal Psych affect normal Psych Narrative: Very pleasant, interacts appropriately Assessment & Plan Assessment/Plan (1) GI bleed: (2) Acute blood loss anemia: (3) Leukocytosis: PLAN: Plan GI bleeding y in the small bowel. I will order CT angio to see if we can locate it. If we cannot locate it and there is no bleeding seen then he can go home and follow-up for capsule endoscopy. Charges/Coding Visit Charges Inpatient E&M: 10126 Subs Hosp L2
[2023-11-08 13:59] LABS: Hemoglobin 7.7 g/dL (13.0-16.5)
--- NOTE | 2023-11-08 15:49 | PCM.PN.HOSP ---
Reason for Visit Reason for Visit: Diagnoses Acute posthemorrhagic anemia (11/06/23) Elevated white blood cell count, unspecified (11/06/23) Gastrointestinal hemorrhage, unspecified (11/06/23) Objective Data Objective Data Vital Signs: Vital Signs Temp Pulse Resp BP Pulse Ox O2 Del Method 97.9 F 90 18 118/75 100 Room Air 11/08/23 13:30 11/08/23 13:30 11/08/23 13:30 11/08/23 13:30 11/08/23 13:30 11/08/23 13:30 Oxygen Delivery Method Room Air Weight: 120.5 kg Body Mass Index (BMI) 35.2 Intake & Output: Intake and Output for Last 24 Hours 11/06/23 11/07/23 11/08/23 23:59 23:59 23:59 Intake Total 200 / 200 2251.00 / 2251.00 143.67 / 143.67 Balance 200 / 200 2251.00 / 2251.00 143.67 / 143.67 Lab / Micro Data 11/08/23 13:37 11/08/23 05:35 Labs: Laboratory Results - last 24 hr 11/06/23 20:45: Crossmatch See Detail 11/07/23 16:17: POC Glucose 163 H 11/07/23 23:02: POC Glucose 151 H 11/08/23 05:35: WBC 13.1 H, RBC 2.79 L, Hgb 8.1 L, Hct 25.3 L, MCV 90.7, MCH 29.0, MCHC 32.0, RDW Std Deviation 45.3 H, RDW Coeff of Saulo 14.4, Plt Count 274, MPV 10.3, Sodium 139, Potassium 3.9, Chloride 109 H, Carbon Dioxide 26.0, Anion Gap 4 L, BUN 12, Creatinine 1.05, Estim Creat Clear Calc 101.74, Est GFR (MDRD) Af Amer 92, Est GFR (MDRD) Non-Af 76, BUN/Creatinine Ratio 11.4, Glucose 178 H, Calcium 8.0 L 11/08/23 06:12: POC Glucose 169 H 11/08/23 10:13: POC Glucose 169 H 11/08/23 13:37: Hgb 7.7 L Radiography Diagnostic Testing: Radiology Impression Abdomen/Pelvis CTA 11/08/23 12:19 IMPRESSION: Hepatomegaly and fatty infiltration of the liver. Findings suggesting multiple hepatic cysts. Sigmoid diverticulosis. Electronically Signed: Enrico Dao MD at 13:28 EDT , ADDENDUM: 11/08/23 1517 IMPRESSION: undefined
--- NOTE | 2023-11-08 15:50 | DS.PCM_ITS ---
Providers Date of Admission: 11/06/23 Date of Discharge: 11/08/23 Primary Care Physician: SHANNON TOMLIN Consultations 11/06/23 19:16 Consult: Gastroenterology Routine Consulting Provider: Sandrita Gastro[facility] Reason for Consult: GI bleed EMERGENT Consult: No MD Notified: Yes Date Notified: 11/06/23 Time Notified: 19:17 Method of Notification: ED Physician Initiated Reason For Visit: ABLA, GI BLEED Diagnosis Discharge Diagnosis (1) GI bleed: Status: Acute Code(s): K92.2 - Gastrointestinal hemorrhage, unspecified (2) Acute blood loss anemia: Status: Acute Code(s): D62 - Acute posthemorrhagic anemia (3) Leukocytosis: Status: Acute Code(s): D72.829 - Elevated white blood cell count, unspecified Medications at Discharge Home Medications metformin 500 mg tablet 500 mg PO DAILY diabetic 05/25/21 insulin degludec 100 unit/mL (3 mL) subcutaneous pen (Tresiba FlexTouch U-100 insulin) 12 unit subcut QHS Blood sugar 11/06/23 levothyroxine 150 mcg tablet (Synthroid) 150 mcg PO DAILY Thyroid 11/06/23 sitagliptin phosphate 100 mg tablet (Januvia) 100 mg PO DAILY Diabetic 11/06/23 ferrous sulfate 325 mg (65 mg iron) tablet 325 mg PO TID #90 tabs 11/08/23 Hospital Course Operations None Procedures Blood transfusion (1 unit), Colonoscopy, EGD, EKG and - (CTA abdomen and pelvis) Summary of Care Provided Minutes Spent on Discharge: 39 Hospital Course: Mr. Bishop is a 62-year-old white male who presented to the emergency department at [facility] emergency department on 11/06/2023 with fatigue and aching. Patient reported he had been taking aspirin via self administration and was complaining of melanotic appearing stools. He states at baseline he is very active but recently he felt exhausted during his attempts to perform his recreational activities. Symptoms started over the weekend and he been taking aspirin for bilateral lower extremity knee pain since . Vital signs on presentation at [facility] showed a temperature of 36 ?C, blood pressure 137/73, heart rate 110, respiratory 16 oxygen saturations were 100% on room air. CBC showed a mild leukocytosis with white count of 16.2, hemoglobin of 8.9 and normal platelet count. Baseline hemoglobin is unknown. He did have a bowel movement at the outside facility and was noted to have grossly melanotic stool that tested positive for occult blood. He was given 1 L of IV saline and IV Protonix and the case was discussed with gastroenterology in [place]-Dr. Puga- who recommended admission to [facility]. A CT of the abdomen pelvis was performed and showed multiple well-circumscribed hepatic lesions that are consistent with cyst and the patient noted those are chronic. He was given 1 unit of packed red blood cells and placed on Protonix drip on arrival. An EGD was performed on 11/07/2023 and showed a normal esophagus, normal stomach, and normal duodenum to the second portion. Given no abnormalities found at that time colonoscopy was prepped for and performed on 11/08/2023. The colon prep was found to be fair and 2 1 to 2 mm polyps were found in the rectum, sigmoid colon and they removed with hot snare, resected and retrieved. There was hematin in the entire examined colon with diverticulosis in the rectosigmoid colon blood did appear to be old. There is also hematin noted in the distal ileum and terminal ileum again this appeared to be digested and old. Given negative exam a CTA of his abdomen pelvis was performed to see if we could localize any signs of bleeding and this was unfortunately negative without any signs of bleeding in the small bowel. I discussed the case with gastroenterology and they asked that we perform a repeat hemoglobin at 530 and if stable discharge him home and if not stable obtain a bleeding scan. We obtained a hemoglobin after his colonoscopy was done and it was found to be 7.7 which is a slight drop from previous however not significant. Hemoglobin at outside facility was 8.9 with trend after hospitalization here being 8.2-8.3-8.5-8.1-7.7-7.8. Given the stability in his hemoglobin when compared to trend he was able to be discharged home with instructions to obtain an outpatient CBC on Saturday from his primary care physician and call Dr. Puga's office to obtain an order for a capsule endoscopy to be performed to assess the small bowel further. It is clear that there was bleeding at 1 point however evidently the bleeding has stopped with the stability in his hemoglobin and negative exam for acute red blood noted. This may have been precipitated by his use of aspirin and he was instructed to avoid NSAIDs including aspirin, ibuprofen, and naproxen. He is to follow-up with his primary care physician within the next week. He is to follow-up with GI as directed after capsule endoscopy. We have asked that he start iron supplementation 325 mg twice daily to 3 times daily and take it with vitamin C either supplementation or orange juice. He was discharged home in stable condition on 11/08/2023 and was instructed to come back to the emergency department with any signs of new bleeding. Discharge diagnoses: GI bleed-suspected small bowel Acute blood loss anemia Leukocytosis Hepatosteatosis Hypothyroidism History of Hodgkin's lymphoma History of thyroid cancer Hyperlipidemia DM-2 Obesity Physical Exam Const alert, oriented x3, no apparent distress, no limitations, healthy appearing and well nourished; Negative for average body habitus Constitutional Narrative: Obese, upper middle-aged, white male, sitting up in bed, multiple family members at bedside, appears comfortable and nontoxic at this time General Appearance: cooperative, comfortable, well kempt and well developed Orientation / Consciousness: awake, oriented to person, oriented to place and oriented to time Exam Limitations: no limitations Nutritional Appearance: obese HEENT normocephalic, head/scalp atraumatic, hearing grossly normal bilaterally and moist oral mucous membranes HEENT Narrative: Mallampati 3, no thrush Eyes PERRL and EOMs intact bilaterally Eyes Narrative: No scleral icterus, mild conjunctival pallor Neck no lymphadenopathy and supple Neck Narrative: Trachea midline, no thyroid enlargement Resp normal respiratory effort, no retractions, no use of accessory muscles and clear to auscultation bilaterally Auscultation: Negative for rales, rhonchi or wheezes Cardio regular rate, regular rhythm, S1 normal heart sound, S2 normal heart sound, no murmurs, no rub, no gallops and no clicks GI normal to inspection, nondistended, normoactive bowel sounds, soft to palpation and non-tender Extremity no clubbing, cyanosis or edema Skin no wounds, skin turgor normal and no jaundice Neuro oriented x3, CN's II-XII intact bilaterally, moves all extremities and no focal motor deficits Speech: speech normal Psych affect normal Psych Narrative: Very pleasant, interacts appropriately Weight / BMI Weight Weight: 120.5 kg Body Mass Index (BMI) 35.2 ABG / Lab / Microbiology Data 11/08/23 17:30 11/08/23 05:35 Laboratory: Laboratory Results - last 24 hr 11/06/23 20:45: Crossmatch See Detail 11/07/23 16:17: POC Glucose 163 H 11/07/23 23:02: POC Glucose 151 H 11/08/23 05:35: WBC 13.1 H, RBC 2.79 L, Hgb 8.1 L, Hct 25.3 L, MCV 90.7, MCH 29.0, MCHC 32.0, RDW Std Deviation 45.3 H, RDW Coeff of Saulo 14.4, Plt Count 274, MPV 10.3, Sodium 139, Potassium 3.9, Chloride 109 H, Carbon Dioxide 26.0, Anion Gap 4 L, BUN 12, Creatinine 1.05, Estim Creat Clear Calc 101.74, Est GFR (MDRD) Af Amer 92, Est GFR (MDRD) Non-Af 76, BUN/Creatinine Ratio 11.4, Glucose 178 H, Calcium 8.0 L 11/08/23 06:12: POC Glucose 169 H 11/08/23 10:13: POC Glucose 169 H 11/08/23 13:37: Hgb 7.7 L Radiography Diagnostic Testing: Radiology Impression Abdomen/Pelvis CTA 11/08/23 12:19 IMPRESSION: Hepatomegaly and fatty infiltration of the liver. Findings suggesting multiple hepatic cysts. Sigmoid diverticulosis. Electronically Signed: Enrico Dao MD at 13:28 EDT Reading Location ID and State: [address] [place] [address] , Service support , ADDENDUM: 11/08/23 1517 IMPRESSION: undefined D/C Instructions Discharge Diet: Low fat / Low cholesterol and 2000 Calorie Control Diet Meaningful Use Info Meaningful Use Meaningful Use Diagnoses (Choose all that apply): None applicable Ischemic Stroke Statin Dosing Therapy Reference: STATIN DOSE THERAPY REFERENCE: * Patients > 75 years receive moderate or high dose statin therapy. * Patients 75 years or YOUNGER should receive HIGH intensity statin dose unless contraindicated. You will be required to document reason for non-treatment if statin daily dose does not meet guidelines. HIGH DOSE STATIN THERAPY DAILY Atorvastatin > than or = to 40 mg Rosuvastatin > than or = to 20 mg Amlodipine + Atorvastatin > than or = to 2.5/40 mg Ezetimibe + Simvastatin 10/80 mg Simvastatin 80mg Discharge Plan Admission Admit Date/Time: 11/06/23 19:21 Primary Reason for Your Visit: Generalized weakness/fatigue/dark black tarry stools Attending Provider: Cata Carson Primary Care Provider: JOSE GUADALUPE ZAVALA Consulting Providers: Miriam Mayberry Instructions Additional Instructions / Restrictions: 1. Please call your primary care physician and asked that a complete blood count be done on 11/11/2023. 2. If you notice new bleeding or change in your symptoms please come back to the emergency department. 3. Please call Dr. Puga's office on Saturday and tell them you were hospitalized and instructed by Dr. Puga to call and set up a capsule endoscopy. 4. Buy srts-tky-dnnnqif iron and take 2 to 3 tablets daily with vitamin C or orange juice to enhance absorption. Please note that this may darken your stools and can cause constipation. 5. Avoid nonsteroidal anti-inflammatory drugs including aspirin, naproxen, and ibuprofen. Would recommend taking Tylenol no more than 3 g daily for pain. Recommended dose would be 1000 mg 3 times daily as needed. Discharge Orders/Prescriptions Prescriptions: New ferrous sulfate 325 mg (65 mg iron) tablet 325 mg PO TID Qty: 90 0RF Continued metformin 500 mg tablet 500 mg PO DAILY Januvia 100 mg tablet 100 mg PO DAILY insulin degludec [Tresiba FlexTouch U-100] 100 unit/mL (3 mL) insulin pen 12 unit subcut QHS levothyroxine [Synthroid] 150 mcg tablet 150 mcg PO DAILY Referrals / Follow Up: Rafael Puga DO [Med Staff - Active Staff] - See Referral Note (Call Saturday to get capsule endoscopy set up) JOSE GUADALUPE ZAVALA, [employer]IOR [employer]OCIATE-C [Primary Care Provider] - Within 1 Week Disposition Disposition (needs filled in before D/C Order can be placed): Home, Self Care Charges/Coding Visit Charges Inpatient E&M: 48606 Disch Hosp >30min
--- NOTE | 2023-11-08 16:04 | CASEMGMT ---
Tertiary Transfer List: This RN CM contacted MMO to clarify pt's MMO plan which was noted to be a [employer] PPO plan. According the MMO website the following tertiary facilities are in network with this plan: [facility], Pending Sale To [facility], [facility], [facility], [facility], [facility], [facility], [facility] Steve, Enrrique BARKLEY. Ace Parisi RN ACM
[2023-11-08 17:38] LABS: Hemoglobin 7.8 g/dL (13.0-16.5)
[2023-11-08 17:46] LABS: Bedside Glucose 133 mg/dL (74-106)
== END 2023-11-08 18:45 | disposition home or self-care (01) | DRG 391 ==
PROVIDERS: Anesthesiology; Internal Medicine Gastroenterology; Admitting Provider Family Medicine; PCP Nurse Practitioner Family; Visit Provider Internal Medicine
PROC: 0DJ08ZZ Inspection of Upper Intestinal Tract, Via Natural or Artificial Opening Endoscopic (ICD-10-PCS; CPT 43235; principal; 2023-11-07 13:10)
PROC: 0DJD8ZZ Inspection of Lower Intestinal Tract, Via Natural or Artificial Opening Endoscopic (ICD-10-PCS; CPT 45378; principal; 2023-11-08 11:25)
DX: R19.5 Other fecal abnormalities (principal); K57.31 Diverticulosis of large intestine without perforation or abscess with bleeding; D62 Acute posthemorrhagic anemia; K76.0 Fatty (change of) liver, not elsewhere classified; E11.9 Type 2 diabetes mellitus without complications; Z79.4 Long term (current) use of insulin; E89.0 Postprocedural hypothyroidism; E78.5 Hyperlipidemia, unspecified; D12.8 Benign neoplasm of rectum; D12.5 Benign neoplasm of sigmoid colon; E66.9 Obesity, unspecified; Z68.34 Body mass index [BMI] 34.0-34.9, adult; Z90.49 Acquired absence of other specified parts of digestive tract; Z79.84 Long term (current) use of oral hypoglycemic drugs; Z79.899 Other long term (current) drug therapy; Z85.71 Personal history of Hodgkin lymphoma; Z85.850 Personal history of malignant neoplasm of thyroid
CPT/HCPCS: 36415; 74174; 80048; 80053; 82962; 83036; 83735; 84443; 85014; 85018; 85025; 85027; 85610; 85730; 86850; 86900; 86901; 86920; 86922; 88305; 93005; 94668; 99252; J7030; J7040; J7120; P9016; Q9967; G0463; J2405